=== PATIENT | female | born 1950 | race Caucasian/White ===

== ENCOUNTER 2020-08-18 13:43 | Emergency (ER) | payer MEDICARE ==
[2020-08-18] MEDS ORDERED: NORMAL SALINE 500 ML IV ONE (14:23)
--- NOTE | 2020-08-18 14:23 | ER Document Report ---
ED Medical Screen (RME) - General Chief Complaint: Syncope Stated Complaint: POSSIBLE SYNCOPE Time Seen by Provider: 08/18/20 14:10 Notes: Patient is a 70-year-old female, currently on Coumadin for atrial fibrillation who presents emergency department with 2 syncopal episodes. The first 1 started around 1130. Patient was able to get up, but then ended up falling again. She ended up falling flat on her face. Exam: Ecchymosis noted to the nasal bridge. Normal strength in upper extremities. Pressure 102/37. I have greeted and performed a rapid initial assessment of this patient. A comprehensive ED assessment and evaluation of the patient, analysis of test results and completion of medical decision making process will be conducted by an additional ED providers. Physical Exam - Vital signs Vitals: Temp Pulse Resp BP Pulse Ox 98.0 F 61 18 102/37 L 100 08/18/20 13:52 08/18/20 13:52 08/18/20 13:52 08/18/20 13:52 08/18/20 13:52 Course - Vital Signs Vital signs: Temp Pulse Resp BP Pulse Ox 98.0 F 61 18 102/37 L 100 08/18/20 13:52 08/18/20 13:52 08/18/20 13:52 08/18/20 13:52 08/18/20 13:52
--- NOTE | 2020-08-18 14:50 | RADIOLOGY REPORT (SQ) ---
EXAM DESCRIPTION: CT HEAD WITHOUT IMAGES COMPLETED DATE/TIME: 08/18/2020 2:37 pm REASON FOR STUDY: syncope; on blood thinners COMPARISON: None. TECHNIQUE: Axial images acquired through the brain without intravenous contrast. Images reviewed wi th bone, brain and subdural windows. Additional sagittal and coronal reconstructions were generated. Images stored on PACS. All CT scanners at this facility use dose modulation, iterative reconstruction, and/or weight based d osing when appropriate to reduce radiation dose to as low as reasonably achievable (ALARA). [facility]: Dose Right [facility]: CareDose [facility]: Dose Right [facility]: Teradose 4D [facility]: Smart Crossbeam Systems RADIATION DOSE: CT Rad equipment meets quality standard of care and radiation dose reduction techniq ues were employed. CTDIvol: 48.9 mGy. DLP: 935 mGy-cm. mGy. LIMITATIONS: None. FINDINGS: VENTRICLES: Normal size and contour. CEREBRUM: No masses. No hemorrhage. No midline shift. No evidence for acute infarction. Few scatte red areas of low density in the white matter most likely chronic small vessel ischemic changes. CEREBELLUM: No masses. No hemorrhage. No alteration of density. No evidence for acute infarction. EXTRAAXIAL SPACES: No fluid collections. No masses. ORBITS AND GLOBE: No intra- or extraconal masses. Normal contour of globe without masses. CALVARIUM: No fracture. PARANASAL SINUSES: There is a small mucous retention cyst in each maxillary sinus. SOFT TISSUES: No mass or hematoma. OTHER: No other significant finding. IMPRESSION: MILD CHRONIC MICROVASCULAR ISCHEMIA. NO ACUTE IMAGING FINDINGS IN THE BRAIN. EVIDENCE OF ACUTE STROKE: NO. COMMENT: Quality ID # [id number]: Final reports with documentation of one or more dose reduction techniques (e.g., Automated exposure control, adjustment of the mA and/or kV according to patient size, use of iterative reconstruction technique) TECHNICAL DOCUMENTATION: JOB ID: [id number] 2010 [employer]- All Rights Reserved Reading location - IP/workstation name: [email or web address]
--- NOTE | 2020-08-18 15:19 | ER Document Report ---
ED Dizziness/Weakness - General Chief Complaint: Syncope Stated Complaint: POSSIBLE SYNCOPE Time Seen by Provider: 08/18/20 14:10 Information source: Patient, Relative - LB Layton as secondary historian Notes: ED Medical Screen (Places Notes) - General Chief Complaint: Syncope Stated Complaint: POSSIBLE SYNCOPE Time Seen by Provider: 08/18/20 14:10 Notes: Patient is a 70-year-old female, currently on Coumadin for atrial fibrillation who presents emergency department with 2 syncopal episodes. The first 1 started around 1130. Patient was able to get up, but then ended up falling again. She ended up falling flat on her face. Exam: Ecchymosis noted to the nasal bridge. Normal strength in upper extremities. Pressure 102/37. MY NOTES 70-year-old female arrives after passing out twice this morning. The latter of which she was awakened on her face and knees. She denies any cephalgia fever chills cough or cold. Patient reports she was getting up this morning to go to the bathroom and she passed out. She has had a UTI for around 1 month and has been taking Macrobid for this. Patient takes warfarin for her atrial fibrillation. She is up for the last 2 weeks to [place] from her home in [place].. Patient advises that she has dysuria and urgency. She also advises she has left knee greater than right knee pain with ecchymosis and bruising and tenderness. She has swelling of her nose and nose bridge with ecchymosis. She denies any chest pain or neck pain or back pain or abdominal pain. She denies any diarrhea or constipation. Patient does think she may have passed out because of the intense gas abdominal pain. Top of the 6 side effects and after all scans were negative and blood tests were negative and urinalysis negative from Macrobid is gas we suspect vasovagal. We advised lactobacillus [id number] as well as yogurt. May take Aleve once or twice for the next 1 to 2 days for pain of nose and left knee. TRAVEL OUTSIDE OF THE [place] IN LAST 30 DAYS: No - Related Data Allergies/Adverse Reactions: codeine Allergy (Intermediate, Verified 08/18/20 15:19) Hives Sulfa (Sulfonamide Antibiotics) Allergy (Intermediate, Verified 08/18/20 15:18) Hives Past Medical History - General Information source: Patient, Relative - Social History Smoking Status: Never Smoker Cigarette use (# per day): No Chew tobacco use (# tins/day): No Smoking Education Provided: No Frequency of alcohol use: None Drug Abuse: None Lives with: Family Family History: Other - Atrial fibrillation Patient has suicidal ideation: No Patient has homicidal ideation: No Review of Systems - Review of Systems Constitutional: See HPI, Weakness EENT: See HPI, Nose pain, Nose congestion Cardiovascular: No symptoms reported Respiratory: No symptoms reported Gastrointestinal: See HPI Genitourinary: No symptoms reported Female Genitourinary: No symptoms reported, Other - Patient is on vaginal estrogen one 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 Musculoskeletal: See HPI, Joint pain - See HPI with left greater than right knees with ecchymosis and tenderness on palpation and range of motion, Joint swelling Skin: No symptoms reported Hematologic/Lymphatic: No symptoms reported Neurological/Psychological: See HPI, Weakness, Lost consciousness -: Yes All other systems reviewed and negative Physical Exam - Vital signs Vitals: Temp Pulse Resp BP Pulse Ox 98.0 F 61 18 102/37 L 100 08/18/20 13:52 08/18/20 13:52 08/18/20 13:52 08/18/20 13:52 08/18/20 13:52 Interpretation: Normal - General General appearance: Appears well, Alert - HEENT Head: Normocephalic, Atraumatic Eyes: Normal Pupils: PERRL Visual yan normal: Yes Ears: Normal Nasal: Troy deformity, Ecchymosis - swelling Mouth/Lips: Normal Mucous membranes: Dry - Respiratory Respiratory status: No respiratory distress Chest status: Nontender Breath sounds: Normal Chest palpation: Normal - Cardiovascular Rhythm: Regular Heart sounds: Normal auscultation Murmur: No - Abdominal Inspection: Normal Distension: No distension Bowel sounds: Normal Tenderness: Nontender Organomegaly: No organomegaly - Rectal Hemorrhoids: Other - Deferred - Genitourinary Bimanuel exam: Other - Deferred - Back Back: Normal, Nontender - Extremities General upper extremity: Normal inspection, Nontender, Normal color, Normal ROM, Normal temperature General lower extremity: Tender, Edema, Normal temperature, Normal weight bearing, Other - Ecchymosis multiple areas to left > right anterior knees and proximal tibia. No: Maya's sign - Neurological Neuro grossly intact: Yes Cognition: Normal Orientation: AAOx4 [place] Coma Scale Eye Opening: Spontaneous [place] Coma Scale Verbal: Oriented [place] Coma Scale Motor: Obeys Commands [place] Coma Scale Total: 15 Speech: Normal Motor strength normal: LUE, RUE, LLE, RLE Sensory: Normal - Psychological Associated symptoms: Normal affect, Normal mood - Skin Skin Temperature: Warm Skin Moisture: Dry Skin Color: Normal Course - Vital Signs Vital signs: Temp Pulse Resp BP Pulse Ox 98.0 F 61 18 102/37 L 99 08/18/20 13:52 08/18/20 13:52 08/18/20 13:52 08/18/20 13:52 08/18/20 16:09 - Laboratory Results Result Diagrams: 08/18/20 16:25 08/18/20 16:25 Laboratory Results Interpreted: 08/18/20 08/18/20 16:25 16:25 RDW 15.2 H PT 19.0 H Critical Laboratory Results Reviewed: Yes Attending or Supervising Physician who Reviewed Labs: LIYAH MCRAE JR - Radiology Results Radiology Results Interpreted: 08/18/20 17:07 Dr. Woodward radiology Critical Radiology Results Reviewed: Yes Attending or Supervising Physician who Reviewed Radiology: LIYAH MCRAE JR Discharge - Discharge Clinical Impression: Knee contusion left side, Vasovagal syncope Hypotension Qualifiers: Hypotension type: unspecified hypotension type Qualified Code(s): I95.9 - Hypotension, unspecified Nasal contusion Qualifiers: Encounter type: initial encounter Qualified Code(s): S00.33XA - Contusion of nose, initial encounter Condition: Stable Disposition: HOME, SELF-CARE Additional Instructions: Follow-up with personal doctor and with orthopedics when you return home to [place]. Use ice packs over your nasal bridge and your knee with a moist rag between the ice pack and your skin. Avoid sleeping with any ice pack. Use the ice pack only when awake. Avoid use the ice pack more than 5 to 10 minutes/h. Also may take bjjr-wnw-[id number] lactobacillus capsules 1 capsule mixed with 1 yogurt daily. Do this for the time while you are on the Macrobid. Prescriptions: Lactobacillus Acidophilus/Pect [Acidophilus-Pectin Capsule] 1 each PO DAILY 7 Days #1 bottle
--- NOTE | 2020-08-18 16:00 | RADIOLOGY REPORT (SQ) ---
EXAM DESCRIPTION: KNEE BILATERAL 1-2 VIEWS IMAGES COMPLETED DATE/TIME: 08/18/2020 3:45 pm REASON FOR STUDY: fall COMPARISON: None. NUMBER OF VIEWS: Four views. TECHNIQUE: AP and lateral views of both knees were obtained. LIMITATIONS: None. FINDINGS: MINERALIZATION: Osteopenia. RIGHT KNEE BONES: No acute fracture or dislocation. JOINT: No effusion. SOFT TISSUES: The quadriceps and patellar tendon silhouettes are intact. LEFT KNEE BONES: No acute fracture or dislocation. JOINT: No effusion. SOFT TISSUES: The quadriceps and patellar tendon silhouettes are intact. IMPRESSION: No acute osseous abnormality of the knees. TECHNICAL DOCUMENTATION: JOB ID: [id number] 2010 [employer]- All Rights Reserved Reading location - IP/workstation name: [email or web address]
--- NOTE | 2020-08-18 16:03 | RADIOLOGY REPORT (SQ) ---
EXAM DESCRIPTION: CHEST SINGLE VIEW IMAGES COMPLETED DATE/TIME: 08/18/2020 3:45 pm REASON FOR STUDY: fall COMPARISON: None. EXAM PARAMETERS: NUMBER OF VIEWS: One view. TECHNIQUE: An AP view of the chest was obtained. RADIATION DOSE: NA LIMITATIONS: None. FINDINGS: LUNGS AND PLEURA: No consolidation, pleural effusion or pneumothorax. MEDIASTINUM AND HILAR STRUCTURES: No mediastinal or hilar contour abnormality. HEART AND VASCULAR STRUCTURES: The cardiac silhouette and pulmonary vasculature are within normal bowman its. BONES: No acute findings. HARDWARE: None in the chest. OTHER: No other finding. IMPRESSION: No acute cardiopulmonary process. TECHNICAL DOCUMENTATION: JOB ID: [id number] 2010 [employer]- All Rights Reserved Reading location - IP/workstation name: [email or web address]
--- NOTE | 2020-08-18 16:12 | RADIOLOGY REPORT (SQ) ---
EXAM DESCRIPTION: FACIAL BONES IMAGES COMPLETED DATE/TIME: 08/18/2020 3:45 pm REASON FOR STUDY: fall COMPARISON: CT of the head without contrast from 08/18/2020. NUMBER OF VIEWS: Four views. TECHNIQUE: PA, Fuentes and lateral views of the facial bones were obtained LIMITATIONS: None. FINDINGS: ORBITS: No fracture. No radiopaque foreign body. SINUSES: No air-fluid level. FACIAL BONES: No fracture. OTHER: No other findings. IMPRESSION: No maxillofacial fracture. TECHNICAL DOCUMENTATION: JOB ID: [id number] 2010 [employer]- All Rights Reserved Reading location - IP/workstation name: [email or web address]
[2020-08-18 16:41] LABS: APPEARANCE,URINE SLIGHTLY-CLOUDY; BILIRUBIN,URINE NEGATIVE (NEGATIVE); COLOR,URINE YELLOW; GLUCOSE, URINE NEGATIVE (NEGATIVE); KETONES,URINE NEGATIVE (NEGATIVE); LEUKOCYTE ESTERASE,URINE NEGATIVE (NEGATIVE); NITRITE,URINE NEGATIVE (NEGATIVE); PROTEIN,URINE NEGATIVE (NEGATIVE); URINE SPECIFIC GRAVITY 1.017; UROBILINOGEN,URINE NEGATIVE mg/dL (<2.0)
[2020-08-18 16:43] LABS: ABSOLUTE BASOPHILS # (AUTO) 0.1 10^3/uL (0.0-0.2); ABSOLUTE EOSINOPHILS # (AUTO) 0.2 10^3/uL (0.0-0.6); ABSOLUTE LYMPHOCYTES (AUTO) 1.3 10^3/uL (0.5-4.7); ABSOLUTE MONOCYTES (AUTO) 0.6 10^3/uL (0.1-1.4); ABSOLUTE NEUT (AUTO) 5.9 10^3/uL (1.7-8.2); BASOPHILS % (AUTO) 0.7 % (0-2); EOSINOPHILS % (AUTO) 2.1 % (0-6); HEMATOCRIT 37.7 % (36.0-47.0); HEMOGLOBIN 12.3 g/dL (12.0-15.5); LYMPHOCYTES % (AUTO) 16.2 % (13-45); MEAN CORPUSCULAR HGB CONC 32.7 g/dL (32.0-36.0); MEAN CORPUSCULAR VOLUME 95 fl (80-97); MONOCYTES % (AUTO) 7.2 % (3-13); PLATELET COUNT 221 10^3/uL (150-450); RED BLOOD COUNT 3.98 10^6/uL (3.72-5.28); RED CELL DISTRIBUTION WIDTH 15.2 % (11.5-14.0); SEGMENTED NEUTROPHILS % (AUTO) 73.8 % (42-78); TOTAL CELLS COUNTED % (AUTO) 100 %
[2020-08-18 16:50] LABS: INTERNATIONAL RATION (INR) 1.58; PARTIAL THROMBOPLASTIN TIME 30.2 SEC (23.5-35.8)
[2020-08-18 17:12] LABS: ALBUMIN 3.9 g/dL (3.5-5.0); ALKALINE PHOSPHATASE 93 U/L (38-126); ASPARTATE AMINO TRANSFERASE 27 U/L (14-36); BILIRUBIN,DIRECT 0.3 mg/dL (0.0-0.4); BILIRUBIN,TOTAL 0.6 mg/dL (0.2-1.3); BLOOD UREA NITROGEN 16 mg/dL (7-20); CALCIUM 9.6 mg/dL (8.4-10.2); GLUCOSE 101 mg/dL (75-110); POTASSIUM 4.7 mmol/L (3.6-5.0); TOTAL PROTEIN 6.9 g/dL (6.3-8.2)
[2020-08-18 17:26] LABS: ANION GAP 5 (5-19); CARBON DIOXIDE 28 mmol/L (22-30); CHLORIDE 106 mmol/L (98-107)
[2020-08-18] MEDS ORDERED: HYDROCODONE/ACETAMINOPHEN 5-325 MG (6 TAB/ER DISP) PO PRN (18:28)
[2020-08-18 18:58] VITALS: BP 126/96
--- NOTE | 2020-08-18 19:12 | EKG REPORT ---
SEVERITY:- ABNORMAL ECG - SINUS RHYTHM PROBABLE ANTEROSEPTAL INFARCT, OLD : Confirmed by: Birgit Daniels MD 18-Aug-2020 19:11:42
== END 2020-08-18 18:58 | disposition home or self-care (01) ==
LOC: ER 13:43
DX: R55 Syncope and collapse (principal); I95.9 Hypotension, unspecified; S80.02XA Contusion of left knee, initial encounter; S80.01XA Contusion of right knee, initial encounter; S00.33XA Contusion of nose, initial encounter; X58.XXXA Exposure to other specified factors, initial encounter; N39.0 Urinary tract infection, site not specified; R09.81 Nasal congestion; R53.1 Weakness; I48.91 Unspecified atrial fibrillation; Z79.01 Long term (current) use of anticoagulants; Z79.2 Long term (current) use of antibiotics; Z88.6 Allergy status to analgesic agent; Z88.5 Allergy status to narcotic agent; Z88.2 Allergy status to sulfonamides
CPT/HCPCS: 93005; 99285; 96360; 36415; 85025; 85610; 85730; 80053; 81001; 84484; 71045; 70150; 73560; 70450; 93010; J7040; A9270

== ENCOUNTER 2020-08-20 16:53 | Emergency (ER) | payer MEDICARE ==
--- NOTE | 2020-08-20 17:25 | ER Document Report ---
ED Fall - General Chief Complaint: Fall Injury Stated Complaint: FALL/LEFT ANKLE,FOOT PAIN Time Seen by Provider: 08/20/20 17:10 Notes: CHIEF COMPLAINT: Left foot right shoulder injury HPI: 70-year-old female presenting for left foot right shoulder injury that occurred yesterday. Patient slipped coming out of her house on icy ground. She rolled the left foot behind her. Denies ankle pain denies proximal fibular pain. Denies hip pain. Denies hitting her head on the ground. Patient states she had a fall with a syncopal episode on Tuesday for which she was seen in the emergency department. Patient states she has been weightbearing on the left foot with discomfort. She believes she fell laterally onto the right shoulder after she slipped to the ground. ROS: See HPI - all other systems were reviewed and are otherwise negative Constitutional: no fever Eyes: no drainage, no blurred vision ENT: no runny nose, no sore throat Cardiovascular: no chest pain Resp: no SOB, no cough GI: no vomiting, no diarrhea, no abdominal pain : no dysuria Integumentary: no rash Allergy: no hives Musculoskeletal: + extremity pain or swelling Neurological: no numbness/tingling, no weakness MEDICATIONS: I agree with the patient medications as charted by the RN. ALLERGIES: I agree with the allergies as charted by the RN. PAST MEDICAL HISTORY/PAST SURGICAL HISTORY: Reviewed and agree as charted by RN. SOCIAL HISTORY: Reviewed and agree as charted by RN. FAMILY HISTORY: No significant familial comorbid conditions directly related to patient complaint EXAM: Reviewed vital signs as charted by RN. CONSTITUTIONAL: Alert and oriented and responds appropriately to questions. Well-appearing; well-nourished HEAD: Normocephalic; atraumatic EYES: PERRL; Conjunctivae clear, sclerae non-icteric. Bruising is noted around both eyes ENT: normal nose; no rhinorrhea; moist mucous membranes; pharynx without lesions noted, no uvula edema or deviation, no tonsillar hypertrophy, phonation normal NECK: Supple without meningismus; non-tender; no cervical lymphadenopathy, no masses CARD: RRR; no murmurs, no clicks, no rubs, no gallops; symmetric distal pulses RESP: Normal chest excursion without splinting or tachypnea; breath sounds clear and equal bilaterally; no wheezes, no rhonchi, no rales, pulse oximetry 97% on room air not hypoxic ABD/GI: Normal bowel sounds; non-distended; soft, non-tender, no rebound, no guarding; no palpable organomegaly or masses. BACK: The back appears normal and is non-tender to palpation, there is no CVA tenderness EXT: Normal ROM in all joints; there is soft tissue swelling to the left foot with tenderness on palpation over the lateral left foot. No tenderness over the medial or lateral malleolus of the left ankle. Dorsalis pedis and posterior tibial pulses are present in the left ankle and foot. Sensation is intact in the toes with capillary refill less than 3 seconds. There is no proximal fibular pain on palpation of the left lower extremity. There is no tenderness on palpation of the left hip. There is a small bruise on the lateral aspect of the right deltoid region with minimal tenderness on palpation. Patient is able to fully range the shoulder without significant discomfort SKIN: Normal color for age and race; warm; dry; good turgor; no acute lesions noted NEURO: Moves all extremities equally; Motor and sensory function intact PSYCH: The patient's mood and manner are appropriate. Grooming and personal hygiene are appropriate. MDM: 70-year-old female presenting for primarily left foot pain from a mechanical fall. She has a small bruise to the right shoulder as well states she did not strike her head the injury occurred yesterday. Will obtain x-ray imaging to evaluate for fracture. She is alert and oriented answering all questions appropriately The patient was evaluated during the global COVID-19 pandemic and that diagnosis was suspected/considered upon their initial presentation. Their evaluation, treatment and testing was consistent with current guidelines for patients who present with complaints or symptoms that may be related to COVID-19 TRAVEL OUTSIDE OF THE [place] IN LAST 30 DAYS: No - Related data Allergies/Adverse Reactions: codeine Allergy (Intermediate, Verified 08/18/20 15:19) Hives Sulfa (Sulfonamide Antibiotics) Allergy (Intermediate, Verified 08/18/20 15:18) Hives Past Medical History - Social History Smoking Status: Unknown if Ever Smoked Family History: Other - Atrial fibrillation - Past Medical History Cardiac Medical History: Reports: Hx Atrial Fibrillation Past Surgical History: Reports: Hx Cholecystectomy, Hx Hysterectomy, Hx Vascular Surgery - vein stripping L leg Physical Exam - Vital signs Vitals: Temp Pulse Resp BP Pulse Ox 98.0 F 69 20 138/72 H 99 08/20/20 17:13 08/20/20 17:13 08/20/20 17:13 08/20/20 17:13 08/20/20 17:13 Course - Re-evaluation Re-evalutation: 08/20/20 17:56 I do not visualize a fracture of the left foot of the right shoulder on my review of the patient's x-rays. Will place in a postop shoe for comfort disc harge home to follow-up with PCP or orthopedics - Vital Signs Vital signs: Temp Pulse Resp BP Pulse Ox 98.0 F 69 20 138/72 H 99 08/20/20 17:13 08/20/20 17:13 08/20/20 17:13 08/20/20 17:13 08/20/20 17:13 - Laboratory Results Critical Laboratory Results Reviewed: No Critical Results - Radiology Results Critical Radiology Results Reviewed: No Critical Results Discharge - Discharge Clinical Impression: Fall Qualifiers: Encounter type: initial encounter Qualified Code(s): W19.XXXA - Unspecified fall, initial encounter Sprain of foot, left Qualifiers: Encounter type: initial encounter Qualified Code(s): S93.602A - Unspecified sprain of left foot, initial encounter Contusion of shoulder, right Qualifiers: Encounter type: initial encounter Qualified Code(s): S40.011A - Contusion of right shoulder, initial encounter Condition: Stable Disposition: HOME, SELF-CARE Additional Instructions: Use the postop shoe when walking on the left foot for comfort over the next 3 to 5 days. Ice and elevate the foot as much as possible. Medications for pain as prescribed. Follow-up with primary care orthopedics for further evaluation and treatment. Your imaging studies today did not reveal evidence of a definitive fracture in the foot or shoulder Prescriptions: Diclofenac Sodium [Voltaren 50 Mg Tablet.] 50 mg PO BID #20 tablet. Referrals: DESTINY MUELLER JR, [ACTIVE PROVISIONAL STAFF] - Follow up as needed
[2020-08-20] MEDS ORDERED: NAPROXEN 250 MG TABLET PO ONE (17:59)
--- NOTE | 2020-08-20 18:00 | RADIOLOGY REPORT (SQ) ---
EXAM DESCRIPTION: FOOT LEFT COMPLETE IMAGES COMPLETED DATE/TIME: 08/20/2020 5:33 pm REASON FOR STUDY: fall COMPARISON: None. NUMBER OF VIEWS: Three views. TECHNIQUE: AP, lateral and oblique radiographic images acquired of the left foot. LIMITATIONS: None. FINDINGS: MINERALIZATION: Osteopenia. BONES: Possible fracture base of the 4th proximal phalanx. Correlate with pain. JOINTS: No effusions. SOFT TISSUES: No soft tissue swelling. No foreign body. OTHER: No other significant finding. IMPRESSION: Possible fracture base of the 4th proximal phalanx. TECHNICAL DOCUMENTATION: JOB ID: [id number] [employer]- All Rights Reserved Reading location - IP/workstation name: [email or web address]
--- NOTE | 2020-08-20 18:00 | RADIOLOGY REPORT (SQ) ---
EXAM DESCRIPTION: SHOULDER RIGHT 2 OR MORE VIEWS IMAGES COMPLETED DATE/TIME: 08/20/2020 5:33 pm REASON FOR STUDY: fall COMPARISON: None. NUMBER OF VIEWS: Three views. TECHNIQUE: Internal rotation, external rotation, and Y view images acquired of the right shoulder. LIMITATIONS: None. FINDINGS: MINERALIZATION: Osteopenia. BONES: No acute fracture. No worrisome bone lesions. JOINTS: No dislocation. VISUALIZED LUNGS AND RIBS: No pneumothorax. No rib fracture. SOFT TISSUES: No radiopaque foreign body. OTHER: No other significant finding. IMPRESSION: NEGATIVE STUDY OF THE RIGHT SHOULDER. NO RADIOGRAPHIC EVIDENCE OF ACUTE INJURY. TECHNICAL DOCUMENTATION: JOB ID: [id number] 2010 [employer]- All Rights Reserved Reading location - IP/workstation name: [email or web address]
[2020-08-20 19:27] VITALS: BP 123/78
== END 2020-08-20 19:32 | disposition home or self-care (01) ==
LOC: ER 16:53
DX: S93.602A Unspecified sprain of left foot, initial encounter (principal); S40.011A Contusion of right shoulder, initial encounter; W00.0XXA Fall on same level due to ice and snow, initial encounter; Y93.89 Activity, other specified; Y92.009 Unspecified place in unspecified non-institutional (private) residence as the place of occurrence of the external cause; I48.91 Unspecified atrial fibrillation; Z79.01 Long term (current) use of anticoagulants; Z20.828 Contact with and (suspected) exposure to other viral communicable diseases; Z88.6 Allergy status to analgesic agent; Z88.5 Allergy status to narcotic agent; Z88.2 Allergy status to sulfonamides
CPT/HCPCS: 99284; 73630; 73030; A9270